=== PATIENT | male | born 1935 | race Caucasian/White ===

== ENCOUNTER → 2016-09-22 | Outpatient (REF) | payer MEDICARE, BC, OTHER ==
[~2016-09-22] MED LIST: /ATOR40TA OR; /PANT40TA PO; ACET50TA PO; ACET65TA OR; ATIV1TAB2 OR; ATIVAN PO; COLA100C2 OR; EFFEXOR PO; HYDR50TA8 OR; HYDRO50TAB PO; JANU100T PO; JANUVIA PO; LORA2TA PO; LORA2TAB OR; MAALOX PO; MAALSUS OR; MAGN64TASA PO; MYLANTA PO; NASONEX; OMEP20TA7 OR; PRIL20CA OR; PRIL20CA PO; PROZ10CA OR; PROZ20CA OR; PROZ20CA11 PO; PROZ40CA OR; RISP2TAB PO; SENO8.6T5 OR; SLOWTAB OR; SYMB16INH INH; TRAZ100T2 PO; ULTR50TA PO; VIST50CA OR; VITA-112 PO; VITA200016 PO; VITAD1000T PO; ZYPR2.5T2 PO; [UNRECOGNIZED DRUG - OTHER] PO; cholecalciferol PO; effexor xr PO; hydrocodone PO
[2016-09-22 08:53] LABS: INR 3.03
== END ==
LOC: SKLAB4 09:00
PROVIDERS: ATTEND Family Medicine
DX: Z51.81 Encounter for therapeutic drug level monitoring (principal); Z79.01 Long term (current) use of anticoagulants

== ENCOUNTER → 2016-09-29 | Outpatient (REF) | payer MEDICARE, BC, OTHER ==
[2016-09-29 10:20] LABS: INR 2.95
== END ==
LOC: SKLAB4 10:22
PROVIDERS: ATTEND Family Medicine
DX: Z51.81 Encounter for therapeutic drug level monitoring (principal); Z79.01 Long term (current) use of anticoagulants

== ENCOUNTER → 2016-10-06 | Outpatient (REF) | payer MEDICARE, BC, OTHER ==
[2016-10-06 08:38] LABS: INR 2.55
== END ==
LOC: SKLAB4 11:58
PROVIDERS: ATTEND Family Medicine
DX: Z51.81 Encounter for therapeutic drug level monitoring (principal); Z79.01 Long term (current) use of anticoagulants

== ENCOUNTER → 2016-10-13 | Outpatient (REF) | payer MEDICARE, BC, OTHER ==
[2016-10-13 10:50] LABS: INR 3.09
== END ==
LOC: SKLAB4 10:10
PROVIDERS: ATTEND Family Medicine
DX: Z79.01 Long term (current) use of anticoagulants (principal)

== ENCOUNTER → 2016-10-20 | Outpatient (REF) | payer MEDICARE, BC, OTHER ==
[2016-10-20 08:32] LABS: INR 2.7
== END ==
LOC: SKLAB4 09:18
PROVIDERS: ATTEND Family Medicine
DX: Z79.01 Long term (current) use of anticoagulants (principal)

== ENCOUNTER → 2016-10-27 | Outpatient (REF) | payer MEDICARE, BC, OTHER ==
[2016-10-27 08:49] LABS: INR 3.13
== END ==
LOC: SKLAB4 11:35
PROVIDERS: ATTEND Family Medicine
DX: Z79.01 Long term (current) use of anticoagulants (principal)

== ENCOUNTER → 2016-11-03 | Outpatient (REF) | payer MEDICARE, BC, OTHER ==
[2016-11-03 09:48] LABS: INR 2.95
== END | disposition home or self-care (01) ==
LOC: SKLAB4 06:29
PROVIDERS: ATTEND Family Medicine
DX: Z51.81 Encounter for therapeutic drug level monitoring (principal); Z79.01 Long term (current) use of anticoagulants

== ENCOUNTER → 2016-11-10 | Outpatient (REF) | payer MEDICARE, BC, OTHER ==
[2016-11-10 09:45] LABS: INR 2.68
== END ==
LOC: SKLAB4 09:13
PROVIDERS: ATTEND Family Medicine
DX: Z51.81 Encounter for therapeutic drug level monitoring (principal); Z79.01 Long term (current) use of anticoagulants

== ENCOUNTER → 2016-11-17 | Outpatient (REF) | payer MEDICARE, BC, OTHER ==
[2016-11-17 08:35] LABS: INR 3.29
== END ==
LOC: SKLAB4 10:13
PROVIDERS: ATTEND Family Medicine
DX: Z79.01 Long term (current) use of anticoagulants (principal)

== ENCOUNTER → 2016-11-24 | Outpatient (REF) | payer MEDICARE, BC, OTHER ==
[2016-11-24 12:03] LABS: INR 2.5
== END ==
LOC: SKLAB4 09:08
PROVIDERS: ATTEND Family Medicine
DX: I82.90 Acute embolism and thrombosis of unspecified vein (principal); Z51.81 Encounter for therapeutic drug level monitoring; Z79.01 Long term (current) use of anticoagulants

== ENCOUNTER → 2016-12-01 | Outpatient (REF) | payer MEDICARE, BC, OTHER ==
[2016-12-01 09:33] LABS: INR 3.36
== END ==
LOC: SKLAB4 09:22
PROVIDERS: ATTEND Family Medicine
DX: Z79.01 Long term (current) use of anticoagulants (principal)

== ENCOUNTER → 2016-12-08 | Outpatient (REF) | payer MEDICARE, BC, OTHER ==
[2016-12-08 09:11] LABS: INR 2.4
== END ==
LOC: SKLAB4 09:40
PROVIDERS: ATTEND Family Medicine
DX: Z79.01 Long term (current) use of anticoagulants (principal)

== ENCOUNTER → 2016-12-15 | Outpatient (REF) | payer MEDICARE, BC, OTHER ==
[2016-12-15 07:53] LABS: INR 2.37
== END ==
LOC: SKLAB4 09:20
PROVIDERS: ATTEND Family Medicine
DX: Z79.01 Long term (current) use of anticoagulants (principal)

== ENCOUNTER → 2016-12-22 | Outpatient (REF) | payer MEDICARE, BC, OTHER ==
[2016-12-22 09:11] LABS: INR 1.74
== END ==
LOC: SKLAB4 06:00
PROVIDERS: ATTEND Family Medicine
DX: Z79.01 Long term (current) use of anticoagulants (principal)

== ENCOUNTER → 2016-12-29 | Outpatient (REF) | payer MEDICARE, BC, OTHER ==
[2016-12-29 09:51] LABS: INR 2.29
== END ==
LOC: SKLAB4 09:58
PROVIDERS: ATTEND Family Medicine
DX: Z79.01 Long term (current) use of anticoagulants (principal)

== ENCOUNTER → 2017-01-05 | Outpatient (REF) | payer MEDICARE, BC, OTHER ==
[2017-01-05 10:40] LABS: INR 2.79
== END ==
LOC: SKLAB4 10:37
PROVIDERS: ATTEND Family Medicine
DX: Z79.01 Long term (current) use of anticoagulants (principal); E55.9 Vitamin D deficiency, unspecified; E11.9 Type 2 diabetes mellitus without complications; M54.5 Low back pain; G20 Parkinson's disease

== ENCOUNTER → 2017-01-12 | Outpatient (REF) | payer MEDICARE, BC, OTHER ==
[2017-01-12 09:06] LABS: INR 2.16
== END ==
LOC: SKLAB4 09:57
PROVIDERS: ATTEND Family Medicine
DX: Z51.81 Encounter for therapeutic drug level monitoring (principal); Z79.01 Long term (current) use of anticoagulants

== ENCOUNTER → 2017-01-19 | Outpatient (REF) | payer MEDICARE, BC, OTHER ==
[2017-01-19 09:35] LABS: INR 2.61
== END ==
LOC: SKLAB4 09:26
PROVIDERS: ATTEND Family Medicine
DX: Z79.01 Long term (current) use of anticoagulants (principal)

== ENCOUNTER → 2017-01-26 | Outpatient (REF) | payer MEDICARE, BC, OTHER ==
[2017-01-26 09:52] LABS: INR 2.67
== END ==
LOC: SKLAB4 10:57
PROVIDERS: ATTEND Family Medicine
DX: Z79.01 Long term (current) use of anticoagulants (principal)

== ENCOUNTER → 2017-02-02 | Outpatient (REF) | payer MEDICARE, BC, OTHER ==
[2017-02-02 08:30] LABS: INR 2.21
[2017-02-02 09:07] LABS: ALBUMIN 3.4 GM/DL (3.2-5.2); ALBUMIN/GLOBULIN RATIO 1.06 (1.00-1.93); ALKALINE PHOSPHATASE 105 U/L (45-117); ALT/SGPT 18 U/L (12-78); ANION GAP 7 MEQ/L (8-16); AST/SGOT 13 U/L (15-37); BILIRUBIN,TOTAL 0.3 MG/DL (0.2-1.0); BLOOD UREA NITROGEN 19 MG/DL (7-18); CALCIUM LEVEL 8.7 MG/DL (8.8-10.2); CARBON DIOXIDE LEVEL 28 MEQ/L (21-32); CHLORIDE LEVEL 104 MEQ/L (98-107); CHOLESTEROL LEVEL 167 MG/DL (<200); GLOMERULAR FILTRATION RATE > 60.0 (>35); GLUCOSE, FASTING 95 MG/DL (83-110); POTASSIUM SERUM 4.1 MEQ/L (3.5-5.1); SODIUM LEVEL 139 MEQ/L (136-145); TOTAL PROTEIN 6.6 GM/DL (6.4-8.2); TRIGLYCERIDES LEVEL 179 MG/DL (<150)
== END ==
LOC: SKLAB4 11:29
PROVIDERS: ATTEND Family Medicine
DX: Z79.01 Long term (current) use of anticoagulants (principal); E55.9 Vitamin D deficiency, unspecified; D64.9 Anemia, unspecified; E78.5 Hyperlipidemia, unspecified

== ENCOUNTER → 2017-02-09 | Outpatient (REF) | payer MEDICARE, BC, OTHER ==
[2017-02-09 08:19] LABS: INR 2.1
== END ==
LOC: SKLAB4 11:05
PROVIDERS: ATTEND Family Medicine
DX: Z79.01 Long term (current) use of anticoagulants (principal); Z86.718 Personal history of other venous thrombosis and embolism

== ENCOUNTER → 2017-02-17 | Outpatient (REF) | payer MEDICARE, BC, OTHER ==
[2017-02-17 07:56] LABS: INR 2.53
== END ==
LOC: SKLAB4 09:45
PROVIDERS: ATTEND Family Medicine
DX: Z79.01 Long term (current) use of anticoagulants (principal)

== ENCOUNTER → 2017-02-23 | Outpatient (REF) | payer MEDICARE, BC, OTHER ==
[2017-02-23 08:18] LABS: INR 2.47
== END ==
LOC: SKLAB4 11:47
PROVIDERS: ATTEND Family Medicine
DX: Z79.01 Long term (current) use of anticoagulants (principal)

== ENCOUNTER → 2017-03-02 | Outpatient (REF) | payer MEDICARE, BC, OTHER ==
[2017-03-02 08:35] LABS: INR 2.41
== END ==
LOC: SKLAB4 08:31
PROVIDERS: ATTEND Family Medicine
DX: Z79.01 Long term (current) use of anticoagulants (principal)

== ENCOUNTER → 2017-03-09 | Outpatient (REF) | payer MEDICARE, BC, OTHER ==
[2017-03-09 09:47] LABS: BASO % 0.5 % (0.0-1.0); EOS # 0.3 K/mm3 (0.0-0.50); EOS % 3.4 % (0.0-3.0); LARGE UNSTAINED CELL # 0.1 K/mm3 (0.0-0.4); LARGE UNSTAINED CELL % 1.5 % (0.0-4.0); LYMPH # 1.3 K/mm3 (1.5-4.5); LYMPH % 14.8 % (24.0-44.0); MEAN CORPUSCULAR HEMOGLOBIN 31.5 pg (27.0-33.0); MEAN CORPUSCULAR HGB CONC 33.2 g/dl (32.0-36.5); MEAN CORPUSCULAR VOLUME 94.9 fl (80.0-96.0); MONO # 0.6 K/mm3 (0.0-0.8); MONO % 6.9 % (0.0-5.0); NEUTROPHILS % 72.9 % (36.0-66.0); PLATELET COUNT, AUTOMATED 224 k/mm3 (150-450); RED CELL DISTRIBUTION WIDTH 12.7 % (11.5-14.5); WHITE BLOOD COUNT 8.2 K/mm3 (4.0-10.0)
[2017-03-09 09:59] LABS: INR 1.98
== END ==
LOC: SKLAB4 09:54
PROVIDERS: ATTEND Family Medicine
DX: Z79.01 Long term (current) use of anticoagulants (principal); D64.9 Anemia, unspecified

== ENCOUNTER → 2017-03-16 | Outpatient (REF) | payer MEDICARE, BC, OTHER ==
[2017-03-16 09:57] LABS: INR 2.1
== END ==
LOC: SKLAB4 10:12
PROVIDERS: ATTEND Family Medicine
DX: Z79.01 Long term (current) use of anticoagulants (principal)

== ENCOUNTER → 2017-03-23 | Outpatient (REF) ==
[2017-03-23 08:57] LABS: INR 2.3
== END ==
LOC: SKLAB4 11:16
PROVIDERS: ATTEND Family Medicine
DX: Z79.01 Long term (current) use of anticoagulants (principal)

== ENCOUNTER → 2017-03-30 | Outpatient (REF) ==
[2017-03-30 09:01] LABS: INR 1.86
== END ==
LOC: SKLAB4 09:37
PROVIDERS: ATTEND Family Medicine
DX: Z79.01 Long term (current) use of anticoagulants (principal)

== ENCOUNTER → 2017-04-06 | Outpatient (REF) ==
[2017-04-06 08:22] LABS: INR 1.49
== END ==
LOC: SKLAB4 09:54
PROVIDERS: ATTEND Family Medicine
DX: Z79.01 Long term (current) use of anticoagulants (principal)

== ENCOUNTER → 2017-04-13 | Outpatient (REF) ==
[2017-04-13 09:13] LABS: INR 1.66
== END ==
LOC: SKLAB4 09:45
PROVIDERS: ATTEND Family Medicine
DX: Z79.01 Long term (current) use of anticoagulants (principal)

== ENCOUNTER → 2017-04-20 | Outpatient (REF) ==
[2017-04-20 07:54] LABS: INR 2.09
== END ==
LOC: SKLAB4 12:01
PROVIDERS: ATTEND Family Medicine
DX: Z79.01 Long term (current) use of anticoagulants (principal)

== ENCOUNTER → 2017-04-27 | Outpatient (REF) ==
[2017-04-27 08:44] LABS: INR 2.01
== END ==
LOC: SKLAB4 11:47
PROVIDERS: ATTEND Family Medicine
DX: Z79.01 Long term (current) use of anticoagulants (principal)

== ENCOUNTER → 2017-05-04 | Outpatient (REF) ==
[2017-05-04 09:47] LABS: INR 2.6
== END ==
LOC: SKLAB4 10:03
PROVIDERS: ATTEND Family Medicine
DX: Z79.01 Long term (current) use of anticoagulants (principal)

== ENCOUNTER → 2017-05-14 | Outpatient (REF) ==
[2017-05-14 08:46] LABS: INR 2.61
== END ==
LOC: SKLAB4 12:04
PROVIDERS: ATTEND Family Medicine
DX: Z79.01 Long term (current) use of anticoagulants (principal)

== ENCOUNTER → 2017-05-18 | Outpatient (REF) ==
[2017-05-18 09:05] LABS: INR 2.29
== END ==
LOC: SKLAB4 12:03
PROVIDERS: ATTEND Family Medicine
DX: Z79.01 Long term (current) use of anticoagulants (principal)

== ENCOUNTER → 2017-05-26 | Outpatient (REF) ==
[2017-05-26 09:37] LABS: INR 2.8
== END ==
LOC: SKLAB4 12:35
PROVIDERS: ATTEND Family Medicine
DX: Z79.01 Long term (current) use of anticoagulants (principal)

== ENCOUNTER → 2017-06-01 | Outpatient (REF) ==
[2017-06-01 09:19] LABS: INR 2.44
== END ==
LOC: SKLAB4 10:08
PROVIDERS: ATTEND Family Medicine
DX: Z79.01 Long term (current) use of anticoagulants (principal)

== ENCOUNTER → 2017-06-08 | Outpatient (REF) ==
[2017-06-08 10:25] LABS: INR 2.45
== END ==
LOC: SKLAB4 10:06
PROVIDERS: ATTEND Family Medicine
DX: Z00.00 Encounter for general adult medical examination without abnormal findings (principal)

== ENCOUNTER → 2017-06-15 | Outpatient (REF) ==
[2017-06-15 08:21] LABS: INR 2.17
== END ==
LOC: SKLAB4 11:11
PROVIDERS: ATTEND Family Medicine
DX: Z79.01 Long term (current) use of anticoagulants (principal)

== ENCOUNTER → 2017-06-22 | Outpatient (REF) ==
[2017-06-22 10:20] LABS: INR 2.3
== END ==
LOC: SKLAB4 10:03
PROVIDERS: ATTEND Family Medicine
DX: Z79.01 Long term (current) use of anticoagulants (principal)

== ENCOUNTER → 2017-06-29 | Outpatient (REF) ==
[2017-06-29 08:49] LABS: INR 2.57
== END ==
LOC: SKLAB4 10:18
PROVIDERS: ATTEND Family Medicine
DX: I82.409 Acute embolism and thrombosis of unspecified deep veins of unspecified lower extremity (principal)

== ENCOUNTER → 2017-07-06 | Outpatient (REF) ==
[2017-07-06 09:05] LABS: INR 2.24
== END ==
LOC: SKLAB4 09:56
PROVIDERS: ATTEND Family Medicine
DX: E11.9 Type 2 diabetes mellitus without complications (principal); Z79.01 Long term (current) use of anticoagulants

== ENCOUNTER → 2017-08-03 | Outpatient (REF) ==
[2017-08-03 10:54] LABS: INR 3.44
== END ==
LOC: SKLAB4 09:28
PROVIDERS: ATTEND Family Medicine
DX: Z79.01 Long term (current) use of anticoagulants (principal)

== ENCOUNTER → 2017-08-10 | Outpatient (REF) ==
[2017-08-10 08:16] LABS: BASO % 0.6 % (0.0-1.0); EOS # 0.3 10^3/uL (0.0-0.50); EOS % 4.8 % (0.0-3.0); IMMATURE GRANULOCYTE % 0.2 % (0-0); LYMPH # 1.7 10^3/uL (1.5-4.5); MEAN CORPUSCULAR HEMOGLOBIN 30.5 pg (27.0-33.0); MEAN CORPUSCULAR HGB CONC 33.2 g/dl (32.0-36.5); MEAN CORPUSCULAR VOLUME 91.9 fl (80.0-96.0); MONO # 0.6 10^3/uL (0.0-0.8); MONO % 9.3 % (0.0-5.0); NEUTROPHILS # 3.8 10^3/uL (1.8-7.7); NEUTROPHILS % 58.1 % (36.0-66.0); PLATELET COUNT, AUTOMATED 231 10^3/uL (150-450); RED CELL DISTRIBUTION WIDTH 12.7 % (11.5-14.5); WHITE BLOOD COUNT 6.5 10^3/uL (4.0-10.0)
[2017-08-10 08:18] LABS: INR 2.39
[2017-08-10 08:39] LABS: ALBUMIN 3.5 GM/DL (3.2-5.2); ALBUMIN/GLOBULIN RATIO 1.17 (1.00-1.93); ALKALINE PHOSPHATASE 104 U/L (45-117); ALT/SGPT 22 U/L (12-78); ANION GAP 7 MEQ/L (8-16); AST/SGOT 14 U/L (7-37); BILIRUBIN,TOTAL 0.3 MG/DL (0.2-1.0); BLOOD UREA NITROGEN 15 MG/DL (7-18); CALCIUM LEVEL 9.2 MG/DL (8.8-10.2); CARBON DIOXIDE LEVEL 30 MEQ/L (21-32); CHLORIDE LEVEL 104 MEQ/L (98-107); CHOLESTEROL LEVEL 187 MG/DL (<200); CREATININE FOR GFR 0.89 MG/DL (0.70-1.30); GLOMERULAR FILTRATION RATE > 60.0 (>35); GLUCOSE, FASTING 97 MG/DL (83-110); POTASSIUM SERUM 3.9 MEQ/L (3.5-5.1); SODIUM LEVEL 141 MEQ/L (136-145); TOTAL PROTEIN 6.5 GM/DL (6.4-8.2); TRIGLYCERIDES LEVEL 199 MG/DL (<150)
== END ==
LOC: SKLAB4 12:46
PROVIDERS: ATTEND Family Medicine
DX: E78.5 Hyperlipidemia, unspecified (principal); E55.9 Vitamin D deficiency, unspecified; Z86.718 Personal history of other venous thrombosis and embolism

== ENCOUNTER → 2017-08-17 | Outpatient (REF) ==
[2017-08-17 10:08] LABS: INR 1.86
== END ==
LOC: SKLAB4 10:49
PROVIDERS: ATTEND Family Medicine
DX: Z86.718 Personal history of other venous thrombosis and embolism (principal); Z79.01 Long term (current) use of anticoagulants

== ENCOUNTER → 2017-08-24 | Outpatient (REF) ==
[2017-08-24 09:21] LABS: INR 2.1
== END ==
LOC: SKLAB4 12:34
PROVIDERS: ATTEND Family Medicine
DX: I82.409 Acute embolism and thrombosis of unspecified deep veins of unspecified lower extremity (principal)

== ENCOUNTER → 2017-08-31 | Outpatient (REF) ==
[2017-08-31 08:55] LABS: INR 1.88
== END ==
LOC: SKLAB4 09:16
PROVIDERS: ATTEND Family Medicine
DX: Z79.01 Long term (current) use of anticoagulants (principal)

== ENCOUNTER → 2017-09-07 | Outpatient (REF) ==
[2017-09-07 12:15] LABS: INR 1.78
== END ==
LOC: SKLAB4 09:43
PROVIDERS: ATTEND Family Medicine
DX: I82.409 Acute embolism and thrombosis of unspecified deep veins of unspecified lower extremity (principal)

== ENCOUNTER → 2017-09-15 | Outpatient (REF) ==
[2017-09-15 08:37] LABS: INR 2.16
== END ==
LOC: SKLAB4 10:37
PROVIDERS: ATTEND Family Medicine
DX: Z79.01 Long term (current) use of anticoagulants (principal)

== ENCOUNTER → 2017-09-22 | Outpatient (REF) ==
[2017-09-22 09:00] LABS: INR 2.37; PROTHROMBIN TIME 26.8 SECONDS (12.4-14.5)
== END ==
LOC: SKLAB4 09:59
DX: Z51.81 Encounter for therapeutic drug level monitoring (principal); Z79.01 Long term (current) use of anticoagulants

== ENCOUNTER → 2017-09-28 | Outpatient (REF) ==
[2017-09-28 08:46] LABS: INR 2.73; PROTHROMBIN TIME 30.1 SECONDS (12.4-14.5)
== END ==
LOC: SKLAB4 13:46
DX: Z51.81 Encounter for therapeutic drug level monitoring (principal); Z79.01 Long term (current) use of anticoagulants; Z86.718 Personal history of other venous thrombosis and embolism

== ENCOUNTER → 2017-10-05 | Outpatient (REF) ==
[2017-10-05 10:20] LABS: INR 2.08; PROTHROMBIN TIME 24.1 SECONDS (12.4-14.5)
[2017-10-05 11:34] LABS: ESTIMATED AVERAGE GLUCOSE 134 MG/DL (60-110); HEMOGLOBIN A1c 6.3 %
== END ==
LOC: SKLAB4 12:16
DX: E11.9 Type 2 diabetes mellitus without complications (principal)

== ENCOUNTER → 2017-10-12 | Outpatient (REF) ==
[2017-10-12 09:51] LABS: INR 2.46; PROTHROMBIN TIME 27.7 SECONDS (12.4-14.5)
== END ==
LOC: SKLAB4 09:48
DX: Z79.01 Long term (current) use of anticoagulants (principal)

== ENCOUNTER → 2017-10-19 | Outpatient (REF) ==
[2017-10-19 10:15] LABS: INR 2.11; PROTHROMBIN TIME 24.4 SECONDS (12.4-14.5)
== END ==
LOC: SKLAB4 09:39
DX: Z79.01 Long term (current) use of anticoagulants (principal)

== ENCOUNTER → 2017-10-26 | Outpatient (REF) ==
[2017-10-26 10:19] LABS: INR 2.39
== END ==
LOC: SKLAB4 10:02
DX: I82.90 Acute embolism and thrombosis of unspecified vein (principal)

== ENCOUNTER → 2017-11-02 | Outpatient (REF) ==
[2017-11-02 09:28] LABS: INR 3.84; PROTHROMBIN TIME 39.7 SECONDS (12.4-14.5)
== END ==
LOC: SKLAB4 11:16
DX: I73.9 Peripheral vascular disease, unspecified (principal)

== ENCOUNTER → 2017-11-06 | Outpatient (REF) ==
[2017-11-06 07:31] LABS: INR 1.85; PROTHROMBIN TIME 21.9 SECONDS (12.4-14.5)
== END ==
LOC: SKLAB4 09:36
DX: Z79.01 Long term (current) use of anticoagulants (principal)

== ENCOUNTER → 2017-11-09 | Outpatient (REF) ==
[2017-11-09 08:18] LABS: INR 1.75; PROTHROMBIN TIME 20.9 SECONDS (12.4-14.5)
== END ==
LOC: SKLAB4 09:44
DX: Z79.01 Long term (current) use of anticoagulants (principal)

== ENCOUNTER → 2017-11-13 | Outpatient (REF) ==
[2017-11-13 08:20] LABS: INR 1.64; PROTHROMBIN TIME 19.9 SECONDS (12.4-14.5)
== END ==
LOC: SKLAB4 07:57
DX: Z79.01 Long term (current) use of anticoagulants (principal)

== ENCOUNTER → 2017-11-16 | Outpatient (REF) ==
[2017-11-16 08:15] LABS: INR 2.17
== END ==
LOC: SKLAB4 08:00
DX: Z79.01 Long term (current) use of anticoagulants (principal)

== ENCOUNTER → 2017-11-23 | Outpatient (REF) ==
[2017-11-23 09:48] LABS: INR 2.44; PROTHROMBIN TIME 27.5 SECONDS (12.4-14.5)
== END ==
LOC: SKLAB4 09:50
DX: Z86.718 Personal history of other venous thrombosis and embolism (principal)

== ENCOUNTER → 2017-11-30 | Outpatient (REF) ==
[2017-11-30 09:18] LABS: INR 2.08; PROTHROMBIN TIME 24.1 SECONDS (12.4-14.5)
== END ==
LOC: SKLAB4 09:44
DX: Z79.01 Long term (current) use of anticoagulants (principal)

== ENCOUNTER → 2017-12-07 | Outpatient (REF) ==
[2017-12-07 08:34] LABS: INR 2.66; PROTHROMBIN TIME 29.5 SECONDS (12.4-14.5)
== END ==
LOC: SKLAB4 09:35
DX: Z79.01 Long term (current) use of anticoagulants (principal)

== ENCOUNTER → 2017-12-14 | Outpatient (REF) ==
[2017-12-14 09:31] LABS: INR 2.41; PROTHROMBIN TIME 27.2 SECONDS (12.4-14.5)
== END ==
LOC: SKLAB4 09:54
DX: Z79.01 Long term (current) use of anticoagulants (principal)

== ENCOUNTER → 2017-12-21 | Outpatient (REF) ==
[2017-12-21 08:17] LABS: INR 2.07
== END ==
LOC: SKLAB4 10:12
DX: Z79.01 Long term (current) use of anticoagulants (principal)

== ENCOUNTER → 2018-01-05 | Outpatient (REF) ==
[2018-01-05 07:52] LABS: INR 3.13; PROTHROMBIN TIME 33.6 SECONDS (12.4-14.5)
== END ==
LOC: SKLAB4 07:44
DX: I82.90 Acute embolism and thrombosis of unspecified vein (principal)

== ENCOUNTER → 2018-01-12 | Outpatient (REF) ==
[2018-01-12 09:16] LABS: INR 8.67
[2018-01-12 12:11] LABS: ESTIMATED AVERAGE GLUCOSE 157 MG/DL (60-110); HEMOGLOBIN A1c 7.1 %
== END ==
LOC: SKLAB4 09:22
DX: Z79.01 Long term (current) use of anticoagulants (principal); E11.9 Type 2 diabetes mellitus without complications

== ENCOUNTER → 2018-01-14 | Outpatient (REF) ==
[2018-01-14 09:45] LABS: INR 3.42; PROTHROMBIN TIME 36.1 SECONDS (12.4-14.5)
== END ==
LOC: SKLAB4 08:25
DX: Z79.01 Long term (current) use of anticoagulants (principal)

== ENCOUNTER → 2018-01-16 | Outpatient (REF) ==
[2018-01-16 07:50] LABS: PROTHROMBIN TIME 25.2 SECONDS (12.4-14.5)
== END ==
LOC: SKLAB4 09:31
DX: Z79.01 Long term (current) use of anticoagulants (principal)

== ENCOUNTER → 2018-01-19 | Outpatient (REF) ==
[2018-01-19 08:03] LABS: INR 3.21; PROTHROMBIN TIME 34.3 SECONDS (12.4-14.5)
== END ==
LOC: SKLAB4 09:18
DX: Z79.01 Long term (current) use of anticoagulants (principal)

== ENCOUNTER → 2018-01-21 | Outpatient (REF) ==
[2018-01-21 07:51] LABS: INR 3.97; PROTHROMBIN TIME 40.8 SECONDS (12.4-14.5)
== END ==
LOC: SKLAB4 10:37
DX: Z79.01 Long term (current) use of anticoagulants (principal)

== ENCOUNTER → 2018-01-25 | Outpatient (REF) ==
[2018-01-25 07:01] LABS: PROTHROMBIN TIME 20.5 SECONDS (12.4-14.5)
== END ==
LOC: SKLAB4 10:09
DX: Z79.01 Long term (current) use of anticoagulants (principal)

== ENCOUNTER → 2018-02-01 | Outpatient (REF) ==
[2018-02-01 09:24] LABS: INR 1.61; PROTHROMBIN TIME 19.6 SECONDS (12.4-14.5)
== END ==
LOC: SKLAB4 08:50
DX: Z79.01 Long term (current) use of anticoagulants (principal)

== ENCOUNTER → 2018-02-02 | Outpatient (REF) | LOC: SKLAB4 13:33 | DX: M25.551 Pain in right hip (principal) ==

== ENCOUNTER → 2018-02-04 | Outpatient (REF) ==
[2018-02-04 09:01] LABS: INR 1.91; PROTHROMBIN TIME 22.5 SECONDS (12.4-14.5)
== END ==
LOC: SKLAB4 11:18
DX: Z79.01 Long term (current) use of anticoagulants (principal)

== ENCOUNTER → 2018-02-11 | Outpatient (REF) ==
[2018-02-11 08:56] LABS: BASO % 0.5 % (0.0-1.0); EOS # 0.2 10^3/uL (0.0-0.50); EOS % 2.8 % (0.0-3.0); HEMATOCRIT 39.4 % (42.0-52.0); HEMOGLOBIN 12.9 g/dl (13.5-17.5); IMMATURE GRANULOCYTE % 0.5 % (0-3.0); LYMPH # 1.1 10^3/uL (1.5-4.5); MEAN CORPUSCULAR HEMOGLOBIN 30.4 pg (27.0-33.0); MEAN CORPUSCULAR HGB CONC 32.7 g/dl (32.0-36.5); MEAN CORPUSCULAR VOLUME 92.7 fl (80.0-96.0); MONO # 0.7 10^3/uL (0.0-0.8); NEUTROPHILS # 6.5 10^3/uL (1.8-7.7); NEUTROPHILS % 75.2 % (36.0-66.0); PLATELET COUNT, AUTOMATED 372 10^3/uL (150-450); RED BLOOD COUNT 4.25 10^6/uL (4.30-6.10); RED CELL DISTRIBUTION WIDTH 13.4 % (11.5-14.5); WHITE BLOOD COUNT 8.6 10^3/uL (4.0-10.0)
[2018-02-11 09:15] LABS: PROTHROMBIN TIME 25.3 SECONDS (12.4-14.5)
[2018-02-11 10:10] LABS: ALBUMIN 3.3 GM/DL (3.2-5.2); ALKALINE PHOSPHATASE 123 U/L (45-117); ALT/SGPT 18 U/L (12-78); ANION GAP 7 MEQ/L (8-16); AST/SGOT 16 U/L (7-37); BILIRUBIN,TOTAL 0.4 MG/DL (0.2-1.0); BLOOD UREA NITROGEN 14 MG/DL (7-18); CALCIUM LEVEL 9.2 MG/DL (8.8-10.2); CARBON DIOXIDE LEVEL 28 MEQ/L (21-32); CHLORIDE LEVEL 103 MEQ/L (98-107); CHOLESTEROL LEVEL 174 MG/DL (<200); CHOLESTEROL RISK RATIO 3.411 (<5); CREATININE FOR GFR 0.98 MG/DL (0.70-1.30); GLOMERULAR FILTRATION RATE > 60.0 (>35); GLUCOSE, FASTING 181 MG/DL (70-100); HDL CHOLESTEROL 51 MG/DL (>40); LDL CHOLESTEROL 77.4 MG/DL (<100); NON-HDL-C 123 MG/DL; POTASSIUM SERUM 4.2 MEQ/L (3.5-5.1); SODIUM LEVEL 138 MEQ/L (136-145); TOTAL PROTEIN 6.6 GM/DL (6.4-8.2); TRIGLYCERIDES LEVEL 228 MG/DL (<150)
== END ==
LOC: SKLAB4 10:30
DX: D64.9 Anemia, unspecified (principal); Z79.01 Long term (current) use of anticoagulants

== ENCOUNTER → 2018-02-18 | Outpatient (REF) | LOC: SKLAB4 09:33 | DX: I74.9 Embolism and thrombosis of unspecified artery (principal) ==

== ENCOUNTER → 2018-02-25 | Outpatient (REF) ==
[2018-02-25 08:11] LABS: INR 1.93; PROTHROMBIN TIME 22.7 SECONDS (12.4-14.5)
== END ==
LOC: SKLAB4 12:08
DX: Z86.718 Personal history of other venous thrombosis and embolism (principal)

== ENCOUNTER → 2018-03-04 | Outpatient (REF) ==
[2018-03-04 08:26] LABS: INR 1.77; PROTHROMBIN TIME 21.2 SECONDS (12.4-14.5)
== END ==
LOC: SKLAB4 10:59
DX: Z79.01 Long term (current) use of anticoagulants (principal)

== ENCOUNTER → 2018-03-18 | Outpatient (REF) ==
[2018-03-18 08:10] LABS: INR 3.28; PROTHROMBIN TIME 34.1 SECONDS (12.1-14.4)
== END ==
LOC: SKLAB4 10:46
DX: Z79.01 Long term (current) use of anticoagulants (principal)

== ENCOUNTER → 2018-03-25 | Outpatient (REF) ==
[2018-03-25 09:17] LABS: INR 3.26
== END ==
LOC: SKLAB4 11:10
DX: Z79.01 Long term (current) use of anticoagulants (principal)

== ENCOUNTER → 2018-04-08 | Outpatient (REF) ==
[2018-04-08 08:26] LABS: INR 1.83; PROTHROMBIN TIME 21.5 SECONDS (12.1-14.4)
== END ==
LOC: SKLAB4 10:01
DX: Z86.718 Personal history of other venous thrombosis and embolism (principal)

== ENCOUNTER → 2018-04-15 | Outpatient (REF) ==
[2018-04-15 08:42] LABS: INR 1.74; PROTHROMBIN TIME 20.6 SECONDS (12.1-14.4)
[2018-04-15 09:00] LABS: ESTIMATED AVERAGE GLUCOSE 146 MG/DL (60-110); HEMOGLOBIN A1c 6.7 %
== END ==
LOC: SKLAB4 08:00
DX: Z79.01 Long term (current) use of anticoagulants (principal)

== ENCOUNTER → 2018-04-22 | Outpatient (REF) ==
[2018-04-22 08:17] LABS: INR 3.29; PROTHROMBIN TIME 34.2 SECONDS (12.1-14.4)
== END ==
LOC: SKLAB4 08:00
DX: Z79.01 Long term (current) use of anticoagulants (principal)

== ENCOUNTER → 2018-04-29 | Outpatient (REF) ==
[2018-04-29 08:51] LABS: INR 2.92; PROTHROMBIN TIME 31.1 SECONDS (12.1-14.4)
== END ==
LOC: SKLAB4 12:59
DX: Z79.01 Long term (current) use of anticoagulants (principal)

== ENCOUNTER → 2018-05-06 | Outpatient (REF) ==
[2018-05-06 09:39] LABS: INR 2.92; PROTHROMBIN TIME 31.1 SECONDS (12.1-14.4)
== END ==
LOC: SKLAB4 08:00
DX: Z79.01 Long term (current) use of anticoagulants (principal)

== ENCOUNTER → 2018-05-13 | Outpatient (REF) ==
[2018-05-13 09:38] LABS: INR 2.88; PROTHROMBIN TIME 30.8 SECONDS (12.1-14.4)
== END ==
LOC: SKLAB4 12:44
DX: Z79.01 Long term (current) use of anticoagulants (principal)

== ENCOUNTER → 2018-05-20 | Outpatient (REF) ==
[2018-05-20 09:27] LABS: PROTHROMBIN TIME 30.1 SECONDS (12.1-14.4)
== END ==
LOC: SKLAB4 10:53
DX: Z79.01 Long term (current) use of anticoagulants (principal)

== ENCOUNTER → 2018-05-25 | Outpatient (REF) | LOC: SKLAB4 10:28 | DX: R13.10 Dysphagia, unspecified (principal) ==

== ENCOUNTER → 2018-05-27 | Outpatient (REF) ==
[2018-05-27 08:37] LABS: INR 2.96; PROTHROMBIN TIME 31.4 SECONDS (12.1-14.4)
== END ==
LOC: SKLAB4 10:00
DX: Z79.01 Long term (current) use of anticoagulants (principal)

== ENCOUNTER 2018-05-30 21:51 | Emergency (ER) | payer OTHER, BC, MEDICARE ==
[2018-05-30 23:28] LABS: HEMOGLOBIN 13.3 g/dl (13.5-17.5); MEAN CORPUSCULAR HEMOGLOBIN 30.2 pg (27.0-33.0); MEAN CORPUSCULAR HGB CONC 32.4 g/dl (32.0-36.5); PLATELET COUNT, AUTOMATED 259 10^3/uL (150-450); RED BLOOD COUNT 4.41 10^6/uL (4.30-6.10); RED CELL DISTRIBUTION WIDTH 13.2 % (11.5-14.5); WHITE BLOOD COUNT 12.3 10^3/uL (4.0-10.0)
[2018-05-30 23:52] LABS: ANION GAP 6 MEQ/L (8-16); BLOOD UREA NITROGEN 19 MG/DL (7-18); C REACTIVE PROTEIN QUANTITATIV 1.15 MG/DL (0.00-0.30); CALCIUM LEVEL 9.1 MG/DL (8.8-10.2); CARBON DIOXIDE LEVEL 29 MEQ/L (21-32); CHLORIDE LEVEL 110 MEQ/L (98-107); CREATININE FOR GFR 0.83 MG/DL (0.70-1.30); GLOMERULAR FILTRATION RATE > 60.0 (>35); GLUCOSE, FASTING 118 MG/DL (70-100); POTASSIUM SERUM 4.3 MEQ/L (3.5-5.1); SODIUM LEVEL 145 MEQ/L (136-145)
[2018-05-31] MEDS: ERTAPENEM SODIUM 1 GM in NS MINI-BAG PLUS 50 ML IV
[2018-05-31] MEDS: ALPRAZolam 0.5 MG TAB PO (00:15)
== END 2018-05-31 01:32 | disposition home or self-care (01) ==
LOC: M ED 05-31 01:32
DX: J69.0 Pneumonitis due to inhalation of food and vomit (principal); G30.9 Alzheimer's disease, unspecified; R13.10 Dysphagia, unspecified; E11.9 Type 2 diabetes mellitus without complications; K21.9 Gastro-esophageal reflux disease without esophagitis; K27.9 Peptic ulcer, site unspecified, unspecified as acute or chronic, without hemorrhage or perforation; F32.9 Major depressive disorder, single episode, unspecified; F43.10 Post-traumatic stress disorder, unspecified; Z87.891 Personal history of nicotine dependence; Z88.8 Allergy status to other drugs, medicaments and biological substances; Z88.0 Allergy status to penicillin
CPT/HCPCS: J1335

== ENCOUNTER → 2018-06-03 | Outpatient (REF) ==
[2018-06-03 10:56] LABS: INR 4.48; PROTHROMBIN TIME 43.7 SECONDS (12.1-14.4)
== END ==
LOC: SKLAB4 13:40
DX: Z79.01 Long term (current) use of anticoagulants (principal)